=== PATIENT | female | born 1985 | race Caucasian/White ===

== ENCOUNTER 2022-06-30 21:50 | Emergency (ER) | payer OTHER ==
[2022-06-30] MEDS ORDERED: PROTONIX 40 MG IV IV ONE ×2 (22:12→22:32)
[2022-06-30] MEDS ORDERED: Sodium Chloride 0.9% 1000 ML 1,000 ML IV STA (22:12)
[2022-06-30] MEDS ORDERED: Zofran 4 MG/2 ML VIAL IV ONE (22:12)
--- NOTE | 2022-06-30 22:21 | ERPHSYRPT ---
- History of Present Illness Time Seen by Provider: 06/30/22 22:12 Historian: patient, family Exam Limitations: no limitations Physician History: pt has hx of acute abd pain , cramping and rectal bleeding since 1030 am today and was seen at [facility] earlier today with same , no scans done then , but after discussion of risk and benefit she wishes to proceed now with CT. Abd with general tenderness and no peritoneal signs or masses or distension. no gross rectal bleeding but has photos of blood tinged stool from home today. No vomiting yet. She has an extensive Hx for GI Tx with diagnosis of gastroparesis after 5 EGDs and Colonoscopies in past with no other diagnoses - denies hx of crohns or UC or other IBD. No current GI med except for nausea. No dizziness or fainting symptoms/ Had anal scope at [facility] and told no hemorrhoids. None seen on rectal external exam here today either and no gross blood visible. nontender. No blood thinners reported or bleeding disorders known. no anal intercourse by hx. Timing/Duration: today Activities at Onset: none Quality: cramping Abdominal Pain Onset Location: generalized abdomen Severity of Pain-Max: moderate Severity of Pain-Current: moderate Modifying Factors: Improves With: nothing Associated Symptoms: back, nausea Previous symptoms: different symptoms Allergies/Adverse Reactions: artificial strawberry flavoring Allergy (Severe, Uncoded 06/29/13 09:32) lips, throat, mouth swelling tape Allergy (Mild, Uncoded 06/29/13 09:32) Blisters Home Medications: Acyclovir 200 mg Cap [Zovirax 200 mg ] 200 mg PO DAILY 06/29/13 [History] Fluoxetine HCl [Prozac] 40 mg PO DAILY 06/29/13 [History] Lysine 500 mg PO DAILY 06/29/13 [History] Omeprazole 20 MG [Prilosec 20 mg] 20 mg PO DAILY 06/29/13 [History] Tramadol HCl 50 mg [Ultram 50 mg] 50 mg PO TID PRN 06/29/13 [History] Hx Influenza Vaccination/Date Given: No Hx Pneumococcal Vaccination/Date Given: No - Review of Systems Constitutional: No Fever, No Chills Eyes: No Symptoms Ears, Nose, & Throat: No Symptoms Respiratory: No Cough, No Dyspnea Cardiac: No Chest Pain, No Edema, No Syncope Abdominal/Gastrointestinal: Abdominal Pain, Nausea, Hematochezia, No Vomiting, No Diarrhea Genitourinary Symptoms: No Dysuria Musculoskeletal: No Back Pain, No Neck Pain Skin: No Symptoms, No Rash Neurological: No Dizziness, No Focal Weakness, No Sensory Changes Psychological: No Symptoms Endocrine: No Symptoms Hematologic/Lymphatic: No Symptoms Immunological/Allergic: No Symptoms All Other Systems: Reviewed and Negative - Past Medical History Pertinent Past Medical History: Yes Neurological History: Migraines ENT History: Other Cardiac History: Other Respiratory History: Asthma, Bronchitis Endocrine Medical History: No Pertinent History Musculoskeletal History: Arthritis, Fractures GI Medical History: GERD, Hernia, Other History: Other Psycho-Social History: Anxiety, Depression, Eating Disorders, Other Female Reproductive Disorders: Endometriosis, Other Other Medical History: eye muscle issues as child. childhood asthma. irregular heart rate. preclampsia. frequent kidney infections. obcessive compulsive disorder and PTSD. right middle metacarpel fx and fourth knuckle. polycystic ovarian disease. constipation - Past Surgical History Past Surgical History: Yes Neuro Surgical History: No Pertinent History Cardiac: No Pertinent History Respiratory: No Pertinent History Gastrointestinal: No Pertinent History Genitourinary: No Pertinent History Musculoskeletal: Orthopedic Surgery Female Surgical History: Section, Tubal Ligation, Other Other Surgical History: T&A. Ovarian cystectomy. tonails removed from bilateral toes - Social History Smoking Status: Current every day smoker How long have you smoked: 7 years Exposure to second hand smoke: Yes Drug Use: none - Nursing Vital Signs Nursing Vital Signs: Initial Vital Signs Temperature 98.6 F 06/30/22 21:59 Pulse Rate 82 06/30/22 21:59 Respiratory Rate 18 06/30/22 21:59 Blood Pressure 93/66 06/30/22 21:59 O2 Sat by Pulse Oximetry 99 06/30/22 21:59 Pain Scale Pain Intensity 5 - Physical Exam General Appearance: no apparent distress, alert Eye Exam: PERRL/EOMI, eyes nml inspection Ears, Nose, Throat Exam: normal ENT inspection, pharynx normal, moist mucous membranes Neck Exam: normal inspection, non-tender, supple, full range of motion Respiratory Exam: normal breath sounds, lungs clear, No respiratory distress Cardiovascular Exam: regular rate/rhythm, normal heart sounds Gastrointestinal/Abdomen Exam: soft, No tenderness, No mass Pelvic Exam: deferred Rectal Exam: normal exam (external/ anal exam) Back Exam: normal inspection, normal range of motion, No CVA tenderness, No vertebral tenderness Extremity Exam: normal inspection, normal range of motion, pelvis stable Neurologic Exam: alert, oriented x 3, cooperative, normal mood/affect, nml cerebellar function, sensation nml, No motor deficits Skin Exam: normal color, warm, dry SpO2 Interpretation: normal SpO2: 99 O2 Delivery: Room Air - Course Nursing assessment & vital signs reviewed: Yes Ordered Tests: Active Orders 24 hr Category Date Time Status EKG-ER Only STAT Care 06/30/22 22:12 Active IV Insertion STAT Care 06/30/22 22:12 Active NPO (ED) STAT Care 06/30/22 22:12 Active ABDOMEN AND PELVIS W/0 CONTRAS [CT] Stat Exams 06/30/22 22:13 Taken AMYLASE Stat Lab 06/30/22 22:50 Completed CBC W DIFF Stat Lab 06/30/22 22:50 Completed CMP Stat Lab 06/30/22 22:50 Completed HCG QUALITATIVE,SERUM Stat Lab 06/30/22 22:50 Completed LIPASE Stat Lab 06/30/22 22:50 Completed Lactic Acid Stat Lab 06/30/22 22:50 Completed UA W/RFX CULTURE Stat Lab 06/30/22 22:49 Completed Medication Summary Discontinued Medications Generic Name Dose Route Start Last Admin Trade Name Trueq PRN Reason Stop Dose Admin Famotidine 20 mg 06/30/22 22:42 06/30/22 22:53 Famotidine 20 Mg/1 Vial IV 06/30/22 22:43 20 mg STAT ONE Administration Famotidine Confirm 06/30/22 22:51 Famotidine 20 Mg/1 Vial Administered 06/30/22 22:52 Dose 20 mg IV .STK-MED ONE Sodium Chloride 1,000 mls @ 999 mls/hr 06/30/22 22:12 06/30/22 23:55 Sodium Chloride 0.9% 1000 Ml IV 06/30/22 23:12 Infused .Q1H1M STA Infusion Sodium Chloride Confirm 06/30/22 22:32 Sodium Chloride 0.9% 1000 Ml Administered 06/30/22 22:33 Dose 1,000 mls @ ud .ROUTE .STK-MED ONE Ondansetron HCl 4 mg 06/30/22 22:12 06/30/22 22:32 Ondansetron Hcl 4 Mg/2 Ml Vial IV 06/30/22 22:13 4 mg STAT ONE Administration Ondansetron HCl Confirm 06/30/22 22:32 Ondansetron Hcl 4 Mg/2 Ml Vial Administered 06/30/22 22:33 Dose 4 mg .ROUTE .STK-MED ONE Pantoprazole Sodium 40 mg 06/30/22 22:12 06/30/22 22:32 Pantoprazole 40 Mg Vial IV 06/30/22 22:13 40 mg STAT ONE Administration Pantoprazole Sodium Confirm 06/30/22 22:32 Pantoprazole 40 Mg Vial Administered 06/30/22 22:33 Dose 40 mg IV .STK-MED ONE Lab/Rad Data: Laboratory Result Diagrams 06/30/22 22:50 06/30/22 22:50 Laboratory Results 06/30/22 06/30/22 06/30/22 Range/Units 22:50 22:50 22:50 WBC (4.0-10.5) x10^3/uL RBC (4.1-5.4) x10^6/uL Hgb (12.0-16.0) g/dL Hct (35-47) % MCV (78-100) fL MCH (26-32) pg MCHC (32-36) g/dL RDW (11.5-14.0) % Plt Count (150-450) x10^3/uL MPV (7.5-11.0) fL Gran % (36.0-66.0) % Immature Gran % (Auto) (0.00-0.4) % Nucleat RBC Rel Count (0.00-0.1) % Eos # (Auto) (0-0.5) x10^3/uL Immature Gran # (Auto) (0.00-0.03) x10^3u/L Absolute Lymphs (auto) (1.0-4.6) x10^3/uL Absolute Monos (auto) (0.0-1.3) x10^3/uL Absolute Nucleated RBC (0.00-0.01) x10^3u/L Lymphocytes % (24.0-44.0) % Monocytes % (0.0-12.0) % Eosinophils % (0.00-5.0) % Basophils % (0.0-0.4) % Absolute Granulocytes (1.4-6.9) x10^3/uL Basophils # (0-0.4) x10^3/uL Sodium 137 (137-145) mmol/L Potassium 4.1 (3.5-5.1) mmol/L Chloride 103 (98-107) mmol/L Carbon Dioxide 25 (22-30) mmol/L Anion Gap 13.1 (5-15) MEQ/L BUN 12 (7-17) mg/dL Creatinine 0.66 (0.52-1.04) mg/dL Estimated GFR > 60.0 ML/MIN Glucose 92 (74-106) mg/dL Lactic Acid 1.8 (0.4-2.0) Calcium 9.2 (8.4-10.2) mg/dL Total Bilirubin 0.30 (0.2-1.3) mg/dL AST 26 (14-36) U/L ALT 19 (0-35) U/L Alkaline Phosphatase 71 (38-126) U/L Serum Total Protein 7.5 (6.3-8.2) g/dL Albumin 4.4 (3.5-5.0) g/dL Amylase 85 (30-110) U/L Lipase 60 (23-300) U/L Serum , Qual NEGATIVE (Negative) Urinalys Dipstick Clnc Urine Color (YELLOW) Urine Appearance (CLEAR) Urine pH (5-6) Ur Specific [place] (1.005-1.025) POC Urine Protein Conf (Negative) Urine Ketones (NEGATIVE) Urine Nitrite (NEGATIVE) Urine Bilirubin (NEGATIVE) Urine Urobilinogen (0-1) mg/dL Urine Leukocytes (NEGATIVE) Urine WBC (Auto) (0-5) /HPF Urine RBC (Auto) (0-2) /HPF U Epithel Cells (Auto) (FEW) /HPF Urine Bacteria (Auto) (NEGATIVE) /HPF Urine RBC (0-5) Bon/ul Urine Mucus (Auto) (NEGATIVE) /HPF Ur Culture Indicated? Urine Glucose (NEGATIVE) mg/dL 06/30/22 06/30/22 Range/Units 22:50 22:49 WBC 9.0 (4.0-10.5) x10^3/uL RBC 5.12 (4.1-5.4) x10^6/uL Hgb 14.3 (12.0-16.0) g/dL Hct 44.3 (35-47) % MCV 86.5 (78-100) fL MCH 27.9 (26-32) pg MCHC 32.3 (32-36) g/dL RDW 12.6 (11.5-14.0) % Plt Count 267 (150-450) x10^3/uL MPV 10.3 (7.5-11.0) fL Gran % 49.5 (36.0-66.0) % Immature Gran % (Auto) 0.1 (0.00-0.4) % Nucleat RBC Rel Count 0.0 (0.00-0.1) % Eos # (Auto) 0.25 (0-0.5) x10^3/uL Immature Gran # (Auto) 0.01 (0.00-0.03) x10^3u/L Absolute Lymphs (auto) 3.52 (1.0-4.6) x10^3/uL Absolute Monos (auto) 0.67 (0.0-1.3) x10^3/uL Absolute Nucleated RBC 0.00 (0.00-0.01) x10^3u/L Lymphocytes % 39.2 (24.0-44.0) % Monocytes % 7.5 (0.0-12.0) % Eosinophils % 2.8 (0.00-5.0) % Basophils % 0.9 (0.0-0.4) % Absolute Granulocytes 4.46 (1.4-6.9) x10^3/uL Basophils # 0.08 (0-0.4) x10^3/uL Sodium (137-145) mmol/L Potassium (3.5-5.1) mmol/L Chloride (98-107) mmol/L Carbon Dioxide (22-30) mmol/L Anion Gap (5-15) MEQ/L BUN (7-17) mg/dL Creatinine (0.52-1.04) mg/dL Estimated GFR ML/MIN Glucose (74-106) mg/dL Lactic Acid (0.4-2.0) Calcium (8.4-10.2) mg/dL Total Bilirubin (0.2-1.3) mg/dL AST (14-36) U/L ALT (0-35) U/L Alkaline Phosphatase (38-126) U/L Serum Total Protein (6.3-8.2) g/dL Albumin (3.5-5.0) g/dL Amylase (30-110) U/L Lipase (23-300) U/L Serum , Qual (Negative) Urinalys Dipstick Clnc MAIN LAB Urine Color YELLOW (YELLOW) Urine Appearance CLEAR (CLEAR) Urine pH 5.5 (5-6) Ur Specific [place] >=1.030 A (1.005-1.025) POC Urine Protein Conf NEGATIVE (Negative) Urine Ketones NEGATIVE (NEGATIVE) Urine Nitrite NEGATIVE (NEGATIVE) Urine Bilirubin NEGATIVE (NEGATIVE) Urine Urobilinogen 0.2 (0-1) mg/dL Urine Leukocytes NEGATIVE (NEGATIVE) Urine WBC (Auto) 0-2 (0-5) /HPF Urine RBC (Auto) NONE (0-2) /HPF U Epithel Cells (Auto) RARE (FEW) /HPF Urine Bacteria (Auto) NONE (NEGATIVE) /HPF Urine RBC NEGATIVE (0-5) Bon/ul Urine Mucus (Auto) SLIGHT A (NEGATIVE) /HPF Ur Culture Indicated? NO Urine Glucose NEGATIVE (NEGATIVE) mg/dL - Progress Progress: improved, re-examined Progress Note: 06/30/22 23:56 pt feels better now and wishes DC to f/u with PMD /GI for further tx and workup. She alraedy is on nexiu.m She is advised of her lung granuloma, kedney stone, abd nodes and DJD for f/u with PMD. 07/01/22 00:03 reviewed [facility] records which had a negative hemoccult stool test. Counseled pt/family regarding: lab results, diagnosis, need for follow-up, rad results - Departure Departure Disposition: Home Clinical Impression: Rectal bleeding, Renal and ureteric calculus, Sacro-iliac pain, Lung granuloma Condition: Good Critical Care Time: No Referrals: JS LENZ [Primary Care Provider] - Follow up/PCP as directed Instructions: Gastrointestinal Bleeding (DC), Kidney Stone, Adult ED, Kidney Stones (DC), Sacroiliac Joint Pain ED Additional Instructions: follow-up with your DrEwelina for kidney stone, lung scar/granuloma, and hip arthritis. as well as your rectal bleeding with your GI dr. this week. Return meantime if more bleeding, vomiting, fever, increased pain, dizziness, or other concerns.
[2022-06-30] MEDS ORDERED: Zofran 4 MG/2 ML VIAL ONE (22:32)
[2022-06-30] MEDS ORDERED: Sodium Chloride 0.9% 1000 ML 1,000 ML ONE (22:32)
[2022-06-30] MEDS ORDERED: Pepcid 20 MG VIAL IV ONE ×2 (22:42→22:51)
[2022-06-30 22:59] LABS: Absolute Neutrophil Ct (ANC) 4.46 x10^3/uL (1.4-6.9); Basophil (Absolute #) 0.08 x10^3/uL (0-0.4); Eosinophil % 2.8 % (0.00-5.0); Eosinophil (Absolute #) 0.25 x10^3/uL (0-0.5); Hematocrit 44.3 % (35-47); Hemoglobin 14.3 g/dL (12.0-16.0); Lymphocyte (Absolute #) 3.52 x10^3/uL (1.0-4.6); Lymphocytes % 39.2 % (24.0-44.0); Mean Cell Volume 86.5 fL (78-100); Mean Corpuscular Hemoglobin 27.9 pg (26-32); Mean Corpuscular Hgb Concent. 32.3 g/dL (32-36); Mean Platelet Volume 10.3 fL (7.5-11.0); Monocyte (Absolute #) 0.67 x10^3/uL (0.0-1.3); Monocytes % 7.5 % (0.0-12.0); Neutrophil % 49.5 % (36.0-66.0); Platelet Count 267 x10^3/uL (150-450); Red Blood Count 5.12 x10^6/uL (4.1-5.4); Red Cell Distribution Width 12.6 % (11.5-14.0)
[2022-06-30 23:06] LABS: Appearance CLEAR (CLEAR); Bilirubin NEGATIVE (NEGATIVE); Dipstick done @ ? MAIN LAB; Epithelial Cells RARE /HPF (FEW); Glucose NEGATIVE (NEGATIVE); Ketones NEGATIVE (NEGATIVE); Mucus SLIGHT /HPF (NEGATIVE); Nitrite NEGATIVE (NEGATIVE); Ph 5.5 (5-6); Protein,Urine Dip NEGATIVE (Negative); RBC NEGATIVE Ery/ul (0-5); Specific Gravity >=1.030 (1.005-1.025); Urobilinogen 0.2 mg/dL (0-1); WBC 0-2 /HPF (0-5)
[2022-06-30 23:09] LABS: Urine Cultured Indicated? NO
[2022-06-30 23:12] LABS: ALBUMIN 4.4 g/dL (3.5-5.0); ALKALINE PHOSPHATASE 71 U/L (38-126); AMYLASE 85 U/L (30-110); ANION GAP 13.1 MEQ/L (5-15); BLOOD UREA NITROGEN 12 mg/dL (7-17); CHLORIDE 103 mmol/L (98-107); Calcium 9.2 mg/dL (8.4-10.2); Carbon Dioxide 25 mmol/L (22-30); Creatinine 1 0.66 mg/dL (0.52-1.04); EST GLOMERULAR FILTRATION RATE > 60.0 ML/MIN; Glucose 92 mg/dL (74-106); LIPASE 60 U/L (23-300); Potassium 4.1 mmol/L (3.5-5.1); SGOT/AST 26 U/L (14-36); SGPT/ALT 19 U/L (0-35); SODIUM 137 mmol/L (137-145); Total Protein 7.5 g/dL (6.3-8.2)
[2022-07-01 00:04] VITALS: BP 105/86; PULSE 70; O2SAT 99
--- NOTE | 2022-07-01 08:02 | XRAY ---
Indication: Abdomen pain and rectal bleeding. Multiple contiguous axial images obtained through the abdomen and pelvis without contrast. Comparison: July 19, 2006 Lung bases demonstrates new small right base calcified granuloma. Heart not enlarged. Stomach distended with food/fluid. Noncontrasted stomach and bowel loops appear nonobstructed with normal appendix. No free fluid/air. Left kidney demonstrates new nonobstructing punctate calculus. Incidental splenic calcified granulomas. Remaining liver, gallbladder, pancreas, spleen, adrenal glands, kidneys, ureters, bladder, uterus, and aorta are unremarkable for noncontrast exam. Osseous structures intact. No ventral or inguinal hernias. Impression: 1. Nonobstructing left renal punctate calculus and old granulomatous disease. 2. Remaining CT abdomen/pelvis without contrast exam is negative. Comment: Preliminary interpretation made by C. No critical discrepancy.
== END 2022-07-01 00:21 | disposition home or self-care (01) ==
LOC: ED 21:50
DX: K62.5 Hemorrhage of anus and rectum (principal); N20.2 Calculus of kidney with calculus of ureter; M53.3 Sacrococcygeal disorders, not elsewhere classified; J84.10 Pulmonary fibrosis, unspecified; R10.9 Unspecified abdominal pain; Z79.899 Other long term (current) drug therapy; Z72.0 Tobacco use
CPT/HCPCS: 36000; 36415; 74176; 80053; 81015; 82150; 83605; 83690; 84703; 85025; 93005; 96360; 96374; 96375; 99284; J2405